=== PATIENT | male | born 1980 | race Caucasian/White ===

== ENCOUNTER 2024-12-25 17:42 | Emergency (ER) | payer BC, OTHER ==
[2024-12-25] MEDS: Take Home: LORazepam 0.5 MG Tab, 2 Tab Pack PO ONE (18:18)
[2024-12-25 18:40] VITALS: BP 146/93; PULSE 61
== END 2024-12-25 18:37 | disposition home or self-care (01) ==
LOC: CC.ED 17:42
DX: F41.0 Panic disorder [episodic paroxysmal anxiety] (principal); F43.10 Post-traumatic stress disorder, unspecified; I10 Essential (primary) hypertension; Z79.899 Other long term (current) drug therapy
CPT/HCPCS: 99283; A9270; 99284